=== PATIENT | female | born 1990 | race Two or more races ===

== ENCOUNTER → 2024-11-15 | Outpatient (CLI) | payer BC, SELFPAY ==
--- NOTE | 2024-11-15 14:50 | XR_ITS ---
Examination: Foot, right, 3 views Technique: AP, oblique, lateral views foot, 3 views Date and time of exam: November 15, 2024 1507 hrs. Indications: Right foot pain one year. Findings: No fracture or dislocation. Mild bunion deformity. No erosive arthritis Moderate to advanced osteoarthritis intertarsal joints especially the talonavicular joint Impression: Significant osteoarthritis intertarsal joints
--- NOTE | 2024-11-15 14:50 | XR_ITS ---
EXAMINATION: Ankle, right 3 views . Technique: Ankle AP, oblique, lateral 3 views Date and time of exam: November 05, 2024 1807 hrs. Indications: Ankle pain one year. Findings: Moderate osteopenia Mild osteoarthritis tibiotalar joint Advanced osteoarthritis talonavicular joint Impression: Advanced osteoarthritis talonavicular joint
== END | disposition home or self-care (01) ==
LOC: CDIM 14:36
PROVIDERS: PCP Internal Medicine; Referring Provider Internal Medicine; Visit Provider Internal Medicine
DX: M19.071 Primary osteoarthritis, right ankle and foot (principal)
CPT/HCPCS: 73610; 73630